=== PATIENT | male | born 1965 | race Caucasian/White ===

== ENCOUNTER 2023-02-06 08:02 | Emergency (ER) | payer OTHER ==
--- OUTSIDE RECORDS SUMMARY | 2023-02-06 08:05 | XMS REPORT | Continuity of Care Document ---
:[address] [facility] t Address [address] [place] [address] [place] [id number] Care Team Providers Name Role Phone GITA JEAN Primary Care Physician Unavailable Gita Jean Attending Clinician Unavailable RADIOLOGY Attending Clinician Unavailable Radiology Attending Clinician Unavailable Doctor Unassigned, [place] Attending Clinician Unavailable FRANCY STARK Admitting Clinician Unavailable GITA JEAN Admitting Clinician Unavailable Payers Payer Name Policy Type Policy Number Effective Date Expiration Date [facility] [id number] 2021 [facility] 00:00:00 Problems This patient has no known problems. Allergies, Adverse Reactions, Alerts Allergy Allergy Status Severity Reaction(s) Onset Inactive Treating Comm ents Source Name Type Date Date Clinician NO KNOWN Drug Active Univers ALLERGIE Class ity [facility] Medical [place] Social History Social Habit Start Date Stop Date Quantity Comments Source Exposure to 2022-07-07 2022-07-17 Not sure [facility] SARS-CoV-2 (event) 00:00:00 10:05:00 Medica l Branch Sex Assigned At [birth year] [facility] 00:00:00 00:00:00 Medical Branch Smoking Status Start Date Stop Date Source Tobacco smoking consumption Univ [facility] Medical unknown Branch Medications Ordered Filled Start Stop Current Ordering Indication Dosage Frequency Signature Comments Components Source Medication Medication Date Date Medication? Clinician (SIG) Name Name iopamidol 2022- No [id number] 100mL 100 mL, Univers (ISOVUE 3-30 03-30 Intravenou ity o f 370-500 mL) 18:00: 17:05 s, ONCE, 1 [place] injection 00 :00 dose, On Medica l 100 mL [place] [facility] 09/24/22 at 1300, Routine Procedures Procedure Date / Time Performing Clinician Source Performed CT ABDOMEN PELVIS W WO 2022-09-24 16:20:00 [facility], [facility] HB CREATININE SERUM/BLOOD 2022-09-24 16:15:00 [facility] ASSIGNMENT OF BENEFITS 2022-09-24 15:39:34 Doctor Unassigned, [facility] [place] [facility] US RETROPERITONEAL 2022-07-21 15:12:24 Requisition, Paper [facility] COMPLETE Medical Branch ASSIGNMENT OF BENEFITS 2022-07-21 13:59:09 Doctor Unassigned, [facility] [place] [facility] Encounters Start End Encounter Admission Attending Care Care Encounter Source Date/Time Date/Time Type Type Clinicians Facility Department ID 2022-09-17 Outpatient Gita Jean [facility] [id number] Common 10:45:03 [id number] [facility] 2022-09-24 2022-09-24 Outpatient R RADIOLOGY [facility] [id number] Univers 10:52:39 23:59:00 [facility] [facility] [place] 2022-09-24 2022-09-[address] [facility] [id number] Univers 10:50:00 23:59:00 Encounter [place] [id number] ity of [place] [id number] [facility] [id number] [facility] 801 Branch 2022-09-24 2022-09-24 Orders Doctor SHAYNA [id number] Univers 00:00:00 00:00:00 Only Unassigned, KATY [id number] ity of [place] [facility] [id number] Angel [id number] [facility] 009 Branch 2022-09-21 2022-09-21 Outpatient R RADIOLOGY [facility] [id number] Univers 00:00:00 00:00:00 ity of [facility] 2022-07-21 2022-07-21 Outpatient R RADIOLOGY [facility] [id number] Univers 08:00:51 23:59:00 ity of [facility] 2022-07-21 2022-07-[address] [facility] [id number] Univers 08:00:00 23:59:00 Encounter [place] [id number] ity of [place] [id number] [facility] [id number] [facility] 806 Branch 2022-07-21 2022-07-21 Orders Doctor SHAYNA [id number] Univers 00:00:00 00:00:00 Only Unassigned, KATY [id number] ity of [place] [facility] [id number] [facility] [id number] [facility] 009 Branch Results Test Description Test Time Test Comments Results Result Comments Source POCT CREATININE 2022-09-25 03:07:48 Test Item Value Reference Range Interpretation Comme nts POCT Creatinine (test code = [id number]) 1.1 mg/dL 0.6-1.3 Lab Interpretation (test code = 08418-7) Normal [facility]
[2023-02-06] MEDS ORDERED: dexAMETHasone 10 MG/ML VIAL ONE (08:38)
[2023-02-06] MEDS ORDERED: KETOROLAC 30 MG/ML INJ ONE (08:39)
[2023-02-06] MEDS ORDERED: HYDROCODONE/APAP 10/325 TAB ONE (08:39)
--- NOTE | 2023-02-06 09:28 | RAD REPORT ---
EXAM DESCRIPTION: RAD - Shoulder Left 2 View - 02/06/2023 8:40 am CLINICAL HISTORY: PAIN COMPARISON: No comparisons TECHNIQUE: Internal and external rotation views of the left shoulder were obtained. FINDINGS: There is no fracture or dislocation. AC joint is normal in appearance. No acute or suspici ous findings. IMPRESSION: Negative two-view left shoulder examination.
--- NOTE | 2023-02-06 09:42 | EDPHYS ---
Physician Documentation [facility] Name: Francis Montes Age: 57 yrs Sex: Male : 1965 Arrival Date: 02/06/2023 Time: 08:02 Bed 13 Private MD: ED Physician Arden Calhoun HPI: 02/06 08:27 This 57 yrs old Male presents to ER via Ambulatory with complaints of Shoulder Pain. kb 08:27 The patient or guardian complains of decreased range of motion, pain, tenderness. left kb shoulder. Context: The problem was sustained at home, resulted from lifting or carrying, The patient experiences decreased range of motion, The patient reports no obvious deformity. Onset: The symptoms/episode began/occurred 5 day(s) ago. Modifying factors: the symptoms are alleviated by nothing. The symptoms are aggravated by movement. Associated signs and symptoms: Pertinent positives: severe pain, Pertinent negatives: tingling. Severity of symptoms: At their worst the symptoms were moderate, in the emergency department the symptoms are unchanged. Treatment prior to arrival includes: no previous treatment. The patient has not experienced similar symptoms in the past. The patient has not recently seen a physician. Pt reports left shoulder pain that started Wednesday morning. 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 Denies injury or trauma. Pain has gotten worse since onset. Historical: - Allergies: 08:20 PENICILLINS; ss - Immunization history:: Adult Immunizations up to date. - Social history:: Smoking status: unknown. ROS: 08:26 Constitutional: Negative for fever, chills, and weight loss. kb 08:26 MS/extremity: Positive for decreased range of motion, pain, tenderness, of the anterior aspect of left shoulder. 08:26 All other systems are negative. Exam: 08:26 Constitutional: This is a well developed, well nourished patient who is awake, alert, kb and in no acute distress. Head/Face: Normocephalic, atraumatic. ENT: Moist Mucous membranes Cardiovascular: Regular rate and rhythm with a normal S1 and S2. No gallops, murmurs, or rubs. No pulse deficits. Respiratory: Respirations even and unlabored. No increased work of breathing. Talking in full sentences Skin: Warm, dry with normal turgor. Normal color. Neuro: Awake and alert, GCS 15, oriented to person, place, time, and situation. Moves all extremities. Normal gait. 08:26 Musculoskeletal/extremity: Extremities: grossly normal except: noted in the anterior aspect of left shoulder: decreased ROM, pain, tenderness, ROM: limited active range of motion due to pain, Circulation is intact in all extremities. Sensation intact. Vital Signs: 08:19 BP 114 / 78; Pulse 68; Resp 16; Temp 97.5(TE); Pulse Ox 100% on R/A; Weight 82.55 kg; ss Height 5 ft. 10 in. ; 08:21 Pain 10/10; ss 09:02 BP 99 / 68; Pulse 56; Resp 17; Pulse Ox 99% on R/A; me1 10:09 BP 92 / 63; Pulse 56; Resp 16; Pulse Ox 98% on R/A; Pain 2/10; me1 08:19 Body Mass Index 26.11 (82.55 kg, 177.8 cm) ss 08:21 Pain Scale: Adult ss 10:09 Pain Scale: Adult me1 MDM: 08:22 Patient medically screened. kb 08:26 Differential diagnosis: Anterior dislocation with fracture, Anterior dislocation kb without fracture, Posterior dislocation with fracture, Posterior dislocation without fracture, tendonitis. Data reviewed: vital signs, nurses notes. 09:32 Counseling: I had a detailed discussion with the patient and/or guardian regarding: the kb historical points, exam findings, and any diagnostic results supporting the discharge/admit diagnosis, radiology results, the need for outpatient follow up, a orthopedic surgeon, to return to the emergency department if symptoms worsen or persist or if there are any questions or concerns that arise at home. 02/06 08:23 Order name: Shoulder Left (2 View) XRAY; Complete Time: 09:29 kb 02/06 08:23 Order name: Sling; Complete Time: 09:30 kb Administered Medications: 08:33 Drug: [place] PO 10 mg-325 mg 1 tabs Route: PO; me1 08:34 Drug: Dexamethasone IM 10 mg Route: IM; Site: right deltoid; me1 08:34 Drug: Ketorolac IM 30 mg Route: IM; Site: right deltoid; me1 09:20 Not Given (Patient Refused): Ondansetron PO 4 mg PO once me1 Disposition: 16:48 Co-signature as Attending Physician, Arden Calhoun MD I agree with the assessment and kdr plan of care. Disposition Summary: 02/06/23 09:42 Discharge Ordered Location: Home kb Condition: Stable kb Diagnosis - Pain in left shoulder kb Followup: kb - With: Emergency Department - When: As needed - Reason: Worsening of condition Followup: kb - With: Private Physician - When: 2 - 3 days - Reason: Recheck today's complaints, Continuance of care, Re-evaluation by your physician Discharge Instructions: - Discharge Summary Sheet kb - Shoulder Pain, [id number] kb Forms: - Medication Reconciliation Form kb - Thank You Letter kb - Antibiotic Education kb - Prescription Opioid Use kb - Patient Portal Instructions kb - Leadership Thank You Letter kb Prescriptions: - Prednisone 20 mg Oral Tablet - take 1 tablet by ORAL route once daily for 5 days; 5 tablet; Refills: 0, Product Selection Permitted - Diclofenac Sodium 75 mg Oral tablet,delayed release (DR/EC) - take 1 tablet by ORAL route 2 times per day As needed; 30 tablet; Refills: 0, Product Selection Permitted - orphenadrine citrate 100 mg Oral Tablet Sustained Release - take 1 tablet by ORAL route 2 times per day As needed; 20 tablet; Refills: 0, Product Selection Permitted Signatures: Dispatcher [employer] EDMS Thalia Mckenzie, INTERNET [employer] SPECIALIST-C INTERNET [employer] SPECIALIST-Arden Cuenca MD MD [facility] Orly Rossi, RN RN Mari Moreno RN RN me1
--- NOTE | 2023-02-06 09:42 | ER ---
Nurse's Notes [facility] Name: Francis Montes Age: 57 yrs Sex: Male : 1965 Arrival Date: 02/06/2023 Time: 08:02 Bed 13 Private MD: Diagnosis: Pain in left shoulder Presentation: 02/06 08:19 Chief complaint: Patient states: L shoulder pain that has been ongoing since Wednesday. ss PT reports he has been doing a lot of work lifting heavy bags of cement, and the pain is only getting worse. Coronavirus screen: Client denies travel out of the [place] in the last 14 days. Ebola Screen: Patient denies exposure to infectious person. Patient denies travel to an Ebola-affected area in the 21 days before illness onset. Initial Sepsis Screen: Does the patient meet any 2 criteria? No. Patient's initial sepsis screen is negative. Does the patient have a suspected source of infection? No. Patient's initial sepsis screen is negative. Risk Assessment: Do you want to hurt yourself or someone else? Patient reports no desire to harm self or others. Onset of symptoms was March 05, 2023. 08:19 Method Of Arrival: Ambulatory ss 08:19 Acuity: NICKIE 4 ss Historical: - Allergies: 08:20 PENICILLINS; ss - Immunization history:: Adult Immunizations up to date. - Social history:: Smoking status: unknown. Screenin:41 [facility] ED Fall Risk Assessment (Adult) Score/Fall Risk Level 0 - 2 = Low Risk. Abuse me1 screen: Denies threats or abuse. Nutritional screening: No deficits noted. Tuberculosis screening: No symptoms or risk factors identified. Assessment: 08:41 General: Appears uncomfortable, well groomed, well developed, well nourished, Behavior me1 is calm, cooperative, appropriate for age. Pain: Complains of pain in left shoulder Pain radiates to left elbow down the posterior aspect of arm. Pain currently is 10 out of 10 on a pain scale. Quality of pain is described as sharp, Is continuous. Neuro: Level of Consciousness is awake, alert, obeys commands, Oriented to person, place, time, situation, Appropriate for age. Cardiovascular: Capillary refill < 3 seconds Patient's skin is warm and dry. Respiratory: Airway is patent Respiratory effort is even, unlabored, Respiratory pattern is regular, symmetrical. Musculoskeletal: Reports pain in left shoulder. 09:09 General: called to patient's room by stating patient isnt feeling well. Patient is me1 lying back on stretcher, pale, diaphoretic and c/o dizziness and nausea. Informed Nery Mckenzie NP and rec'd order for zofran. Put a cool rag on patient's head. Refused zofran stating that he doesn't need it as he is feeling better already. . Vital Signs: 08:19 BP 114 / 78; Pulse 68; Resp 16; Temp 97.5(TE); Pulse Ox 100% on R/A; Weight 82.55 kg; ss Height 5 ft. 10 in. ; 08:21 Pain 10/10; ss 09:02 BP 99 / 68; Pulse 56; Resp 17; Pulse Ox 99% on R/A; me1 10:09 BP 92 / 63; Pulse 56; Resp 16; Pulse Ox 98% on R/A; Pain 2/10; me1 08:19 Body Mass Index 26.11 (82.55 kg, 177.8 cm) ss 08:21 Pain Scale: Adult ss 10:09 Pain Scale: Adult me1 ED Course: 08:03 Patient arrived in ED. ts1 08:07 Arden Calhoun MD is Attending Physician. kdr 08:20 Triage completed. ss 08:20 Arm band placed on right wrist. ss 08:22 Thalia Mckenzie FNP-C [facility] kb 08:24 Mari Moreno, RN is Primary Nurse. me1 08:41 Shoulder Left (2 View) XRAY In Process Unspecified. EDMS 08:41 Patient has correct armband on for positive identification. Bed in low position. Call me1 light in reach. Side rails up X 1. Provided Education on: POC. Verbalized understanding. . 08:41 No provider procedures requiring assistance completed. Patient did not have IV access me1 during this emergency room visit. Administered Medications: 08:33 Drug: [place] PO 10 mg-325 mg 1 tabs Route: PO; me1 08:34 Drug: Dexamethasone IM 10 mg Route: IM; Site: right deltoid; me1 08:34 Drug: Ketorolac IM 30 mg Route: IM; Site: right deltoid; me1 09:20 Not Given (Patient Refused): Ondansetron PO 4 mg PO once me1 Medication: 08:41 VIS not applicable for this client. me1 Outcome: 09:42 Discharge ordered by . kb 10:09 Discharged to home ambulatory, with significant other. me1 10:09 Condition: stable 10:09 Discharge instructions given to patient, significant other, Instructed on discharge instructions, follow up and referral plans. medication usage, Demonstrated understanding of instructions, follow-up care, medications, Prescriptions given X 3. 10:10 Patient left the ED. me1 Signatures: Dispatcher [employer] EDMS Thalia Mcknezie, CORPORATE COORDINATOR-C CORPORATE COORDINATOR-Ckb Arden Calhoun MD MD [facility] Orly Rossi, ENYMAR RN ss Zohreh Winter, PAS PAS 1 Mari Moreno, RN RN me1
[2023-02-06 10:15] VITALS: TEMP 97.5
[2023-02-06 10:18] VITALS: BP 92/63; O2SAT 98
== END 2023-02-06 10:10 | disposition home or self-care (01) ==
LOC: ER 08:02
DX: M25.512 Pain in left shoulder (principal); Z88.0 Allergy status to penicillin
CPT/HCPCS: 73030; 96372; 99284; J1100

== ENCOUNTER 2024-04-04 08:01 | Day surgery (SDC) | payer OTHER ==
[2024-04-04] MEDS ORDERED: Gemcitabine 26.3 ML IS ONE (08:30)
[2024-04-04 08:31] LABS: Specific Gravity 1.019 (1.005-1.030); Urine Bilirubin NEGATIVE (Negative); Urine Blood Negative (Negative); Urine Clarity Clear (Clear); Urine Color Light-Yellow (Yellow); Urine Glucose 4+ (Over) (Negative); Urine Ketones NEGATIVE (Negative); Urine Microscopic Reflex YN NO UMIC; Urine Nitrite NEGATIVE (Negative); Urine Protein NEGATIVE (Negative); Urine Urobilinogen Normal (Normal)
[2024-04-04] MEDS: OXYBUTYNIN ER 5 MG TAB PO ONE (08:32)
[2024-04-04 08:37] VITALS: BP 123/61; TEMP 97.8; O2SAT 100; BMI 24.0
[2024-04-04] MEDS: DIAZEPAM 5 MG TABLET ONE (08:43)
[2024-04-04] MEDS ORDERED: LIDOCAINE JELLY 2% 5 ML SYRINGE TOP ONE (08:48)
--- NOTE | 2024-04-04 19:04 | P.PN ---
Date of Service: 04/04/24 Preprocedure diagnoses: Recurrent low-grade urothelial carcinoma the bladder Postprocedure diagnosis: Recurrent low-grade urothelial carcinoma the bladder Principal procedures: Insertion of urethral Reynolds catheter Instillation of intravesical gemcitabine 2 g and 50 cc normal saline, monthly maintenance since 04/04/24 Indication for procedure: Mr. Montes is a 58-year-old gentleman who underwent removal of a significantly sized bladder tumor found to be TA low-grade pathologically September 2022. He underwent an induction course of gemcitabine and then followed up with maintenance at which point a recurrence was noted December 2023. He was counseled on the potential benefit of not only a repeat induction course but continued maintenance therapy for a year to try to decrease his risk of future recurrences. Procedure note: The patient was consented before and his genitalia was prepped with Betadine and a lidocaine Uro-Jet was used to insert an 18 Vietnamese Reynolds catheter with ease. The bladder was decompressed of fluid and urine, and then his genitalia was toweled off and a fluid impermeable drape was placed covering his body from head to toe with the phallus brought through a hiatus in the drape to minimize the risk of contact exposure. He had been given 5 mg of Valium and 10 mg of oxybutynin XL prior to the subsequent retrograde instillation of 2 g of gemcitabine and 50 cc normal saline via the catheter into his bladder. He was then allowed to rotate by one quarter turn every 15 minutes, targeting a total of 90 minutes of instillation. The urine and chemotherapy was subsequently evacuated into the associated leg bag, and the urethral Reynolds catheter was removed. He was then allowed to sit, stand, and wash up and get dressed before being discharged from the day surgery procedure area in good condition. Complications: None Discharge disposition: Follow-up for outpatient/office cystoscopy around 04/26/2024. Continue intravesical gemcitabine 2 g monthly maintenance therapy once a month thereafter for 1 year, until 02/2025.
== END 2024-04-04 11:52 | disposition home or self-care (01) ==
LOC: DS 08:01
PROVIDERS: ATTEND Urology
PROC: 3E0K705 Introduction of Other Antineoplastic into Genitourinary Tract, Via Natural or Artificial Opening (ICD-10-PCS; principal; 2024-04-04)
DX: C67.9 Malignant neoplasm of bladder, unspecified (principal)
CPT/HCPCS: 81003; 51720 ×2; J9201

== ENCOUNTER 2024-05-09 08:07 | Day surgery (SDC) | payer OTHER ==
[~2024-05-09 08:07] MED LIST: Gemcitabine 52.6 ML IS ONE
[2024-05-09 08:32] LABS: Specific Gravity 1.025 (1.005-1.030); Sqamous Epithelial None Seen /HPF (None Seen); Urine Bacteria None Seen /HPF (<20); Urine Bilirubin NEGATIVE (Negative); Urine Blood Negative (Negative); Urine Clarity Clear (Clear); Urine Color Light-Yellow (Yellow); Urine Culture Reflex Order NOT NEEDED; Urine Glucose 4+ (Over) (Negative); Urine Ketones NEGATIVE (Negative); Urine Microscopic Reflex YN ORDER UMIC; Urine Nitrite NEGATIVE (Negative); Urine Protein NEGATIVE (Negative); Urine RBC <5 /HPF (None Seen); Urine Urobilinogen Normal (Normal); Urine WBC None Seen /HPF (<5); Urine pH 7.5 (5.0-7.0)
[2024-05-09] MEDS: OXYBUTYNIN ER 5 MG TAB PO ONE (08:33)
[2024-05-09 08:39] VITALS: BMI 25.1
[2024-05-09 08:41] VITALS: BP 115/64; TEMP 97.2; O2SAT 100
[2024-05-09] MEDS: DIAZEPAM 5 MG TABLET ONE (09:09)
[2024-05-09] MEDS ORDERED: LIDOCAINE JELLY 2% 5 ML SYRINGE TOP ONE ×2 (09:17→09:45)
--- NOTE | 2024-05-09 19:35 | P.PN ---
Date of Service: 05/09/24 Preprocedure diagnoses: Recurrent low-grade urothelial carcinoma the bladder Postprocedure diagnosis: Recurrent low-grade urothelial carcinoma the bladder Principal procedures: Insertion of urethral Reynolds catheter Instillation of intravesical gemcitabine 2 g and 50 cc normal saline, monthly maintenance since 04/04/24 Indication for procedure: Mr. Montes is a 58-year-old gentleman who underwent removal of a significantly sized bladder tumor found to be TA low-grade pathologically September 2022. He underwent an induction course of gemcitabine and then followed up with maintenance at which point a recurrence was noted December 2023. He was counseled on the potential benefit of not only a repeat induction course but continued maintenance therapy for a year to try to decrease his risk of future recurrences. Procedure note: The patient was consented before and his genitalia was prepped with Betadine and a lidocaine Uro-Jet was used to insert an 18 Malay Reynolds catheter with ease. The bladder was decompressed of fluid and urine, and then his genitalia was toweled off and a fluid impermeable drape was placed covering his body from head to toe with the phallus brought through a hiatus in the drape to minimize the risk of contact exposure. He had been given 5 mg of Valium and 10 mg of oxybutynin XL prior to the subsequent retrograde instillation of 2 g of gemcitabine and 50 cc normal saline via the catheter into his bladder. He was then allowed to rotate by one quarter turn every 15 minutes, targeting a total of 90 minutes of instillation. The urine and chemotherapy was subsequently evacuated into the associated leg bag, and the urethral Reynolds catheter was removed. He was then allowed to sit, stand, and wash up and get dressed before being discharged from the day surgery procedure area in good condition. Complications: None Discharge disposition: Follow-up for outpatient/office cystoscopy around 07/27/2023. Continue intravesical gemcitabine 2 g monthly maintenance therapy once a month thereafter for 1 year, until 02/2025.
== END 2024-05-09 11:46 | disposition home or self-care (01) ==
LOC: DS 08:07
PROVIDERS: ATTEND Urology
PROC: 3E0K705 Introduction of Other Antineoplastic into Genitourinary Tract, Via Natural or Artificial Opening (ICD-10-PCS; principal; 2024-05-09)
DX: C67.9 Malignant neoplasm of bladder, unspecified (principal)
CPT/HCPCS: 81001; 51720; J9201

== ENCOUNTER 2024-06-06 09:03 | Day surgery (SDC) | payer OTHER ==
[2024-06-06] MEDS: OXYBUTYNIN ER 5 MG TAB PO ONE (09:09)
[2024-06-06 09:27] LABS: Specific Gravity 1.024 (1.005-1.030); Urine Bilirubin NEGATIVE (Negative); Urine Blood Negative (Negative); Urine Clarity Clear (Clear); Urine Color Light-Yellow (Yellow); Urine Glucose 4+ (Over) (Negative); Urine Ketones NEGATIVE (Negative); Urine Microscopic Reflex YN NO UMIC; Urine Nitrite NEGATIVE (Negative); Urine Protein NEGATIVE (Negative); Urine Urobilinogen Normal (Normal); Urine pH 5.5 (5.0-7.0)
[2024-06-06] MEDS: DIAZEPAM 5 MG TABLET ONE (09:42)
[2024-06-06 09:53] VITALS: BP 107/60; TEMP 97.8; O2SAT 100; BMI 25.5
[2024-06-06] MEDS ORDERED: LIDOCAINE JELLY 2% 5 ML SYRINGE TOP ONE (09:53)
--- NOTE | 2024-06-06 16:57 | P.PN ---
Date of Service: 06/06/24 Preprocedure diagnoses: Recurrent low-grade urothelial carcinoma the bladder Postprocedure diagnosis: Recurrent low-grade urothelial carcinoma the bladder Principal procedures: Insertion of urethral Reynolds catheter Instillation of intravesical gemcitabine 2 g in 50 cc normal saline, monthly maintenance since 04/04/24 Indication for procedure: Mr. Montes is a 58-year-old gentleman who underwent removal of a significantly sized bladder tumor found to be TA low-grade pathologically September 2022. He underwent an induction course of gemcitabine and then followed up with maintenance at which point a recurrence was noted December 2023. He was counseled on the potential benefit of not only a repeat induction course but continued maintenance therapy for a year to try to decrease his risk of future recurrences. Procedure note: The patient was consented before and his genitalia was prepped with Betadine and a lidocaine Uro-Jet was used to insert an 18 Arabic Reynolds catheter with ease. The bladder was decompressed of fluid and urine, and then his genitalia was toweled off and a fluid impermeable drape was placed covering his body from head to toe with the phallus brought through a hiatus in the drape to minimize the risk of contact exposure. He had been given 5 mg of Valium and 10 mg of oxybutynin XL prior to the subsequent retrograde instillation of 2 g of gemcitabine and 50 cc normal saline via the catheter into his bladder. He was then allowed to rotate by one quarter turn every 15 minutes, targeting a total of 90 minutes of instillation. The urine and chemotherapy was subsequently evacuated into the associated leg bag, and the urethral Reynolds catheter was removed. He was then allowed to sit, stand, and wash up and get dressed before being discharged from the day surgery procedure area in good condition. Complications: None Discharge disposition: Follow-up for outpatient/office cystoscopy around 07/27/2023. Continue intravesical gemcitabine 2 g monthly maintenance therapy once a month thereafter for 1 year, until 02/2025.
== END 2024-06-06 11:49 | disposition home or self-care (01) ==
LOC: DS 09:03
PROVIDERS: ATTEND Urology
PROC: 3E0K705 Introduction of Other Antineoplastic into Genitourinary Tract, Via Natural or Artificial Opening (ICD-10-PCS; principal; 2024-06-06)
DX: C67.9 Malignant neoplasm of bladder, unspecified (principal)
CPT/HCPCS: 81003; 51720; J9201

== ENCOUNTER 2024-07-11 09:07 | Day surgery (SDC) | payer OTHER ==
[2024-07-11] MEDS: OXYBUTYNIN ER 5 MG TAB PO ONE (09:31)
[2024-07-11 09:33] LABS: Specific Gravity 1.026 (1.005-1.030); Urine Bilirubin NEGATIVE (Negative); Urine Blood Negative (Negative); Urine Clarity Clear (Clear); Urine Color Colorless (Yellow); Urine Glucose 4+ (Over) (Negative); Urine Ketones NEGATIVE (Negative); Urine Microscopic Reflex YN NO UMIC; Urine Nitrite NEGATIVE (Negative); Urine Protein NEGATIVE (Negative); Urine Urobilinogen Normal (Normal); Urine pH 5.5 (5.0-7.0)
[2024-07-11] MEDS: DIAZEPAM 5 MG TABLET ONE (09:44)
[2024-07-11] MEDS: LIDOCAINE JELLY 2% 5 ML SYRINGE TOP ONE (10:23)
[2024-07-11] MEDS ORDERED: Gemcitabine 52.6 ML IS ONE (10:30)
[2024-07-14 01:13] VITALS: BP 120/64; TEMP 98.4; O2SAT 100; BMI 25.8
--- NOTE | 2024-07-14 14:15 | P.PN ---
Date of Service: 07/11/24 Date of Service: 07/11/24 Preprocedure diagnoses: Recurrent low-grade urothelial carcinoma the bladder Postprocedure diagnosis: Recurrent low-grade urothelial carcinoma the bladder Principal procedures: Insertion of urethral Reynolds catheter Instillation of intravesical gemcitabine 2 g in 50 cc normal saline, monthly maintenance since 04/04/24 Indication for procedure: Mr. Montes is a 58-year-old gentleman who underwent removal of a significantly sized bladder tumor found to be TA low-grade pathologically September 2022. He underwent an induction course of gemcitabine and then followed up with maintenance at which point a recurrence was noted December 2023. He was counseled on the potential benefit of not only a repeat induction course but continued maintenance therapy for a year to try to decrease his risk of future recurrences. Procedure note: The patient was consented before and his genitalia was prepped with Betadine and a lidocaine Uro-Jet was used to insert an 18 Moroccan Reynolds catheter with ease. The bladder was decompressed of fluid and urine, and then his genitalia was toweled off and a fluid impermeable drape was placed covering his body from head to toe with the phallus brought through a hiatus in the drape to minimize the risk of contact exposure. He had been given 5 mg of Valium and 10 mg of oxybutynin XL prior to the subsequent retrograde instillation of 2 g of gemcitabine and 50 cc normal saline via the catheter into his bladder. He was then allowed to rotate by one quarter turn every 15 minutes, targeting a total of 90 minutes of instillation. The urine and chemotherapy was subsequently evacuated into the associated leg bag, and the urethral Reynolds catheter was removed. He was then allowed to sit, stand, and wash up and get dressed before being discharged from the day surgery procedure area in good condition. Complications: None Discharge disposition: Follow-up for outpatient/office cystoscopy around 07/27/2023. Continue intravesical gemcitabine 2 g monthly maintenance therapy once a month thereafter for 1 year, until 02/2025.
== END 2024-07-11 12:32 | disposition home or self-care (01) ==
LOC: DS 09:07
PROVIDERS: ATTEND Urology
PROC: 3E0K705 Introduction of Other Antineoplastic into Genitourinary Tract, Via Natural or Artificial Opening (ICD-10-PCS; principal; 2024-07-11)
DX: C67.9 Malignant neoplasm of bladder, unspecified (principal)
CPT/HCPCS: 81003; 51720; J9201

== ENCOUNTER 2024-08-08 07:59 | Day surgery (SDC) | payer OTHER ==
[2024-08-08] MEDS ORDERED: Gemcitabine 52.6 ML IS ONE (08:00)
[2024-08-08 08:38] LABS: Specific Gravity 1.026 (1.005-1.030); Urine Bilirubin NEGATIVE (Negative); Urine Blood Negative (Negative); Urine Clarity Clear (Clear); Urine Color Light-Yellow (Yellow); Urine Glucose 4+ (Over) (Negative); Urine Ketones NEGATIVE (Negative); Urine Microscopic Reflex YN NO UMIC; Urine Nitrite NEGATIVE (Negative); Urine Protein NEGATIVE (Negative); Urine Urobilinogen Normal (Normal)
[2024-08-08] MEDS: OXYBUTYNIN ER 5 MG TAB PO ONE (08:39)
[2024-08-08] MEDS: DIAZEPAM 5 MG TABLET ONE (08:49)
[2024-08-08] MEDS: LIDOCAINE JELLY 2% 5 ML SYRINGE TOP ONE (09:04)
[2024-08-08 09:18] VITALS: BP 112/63; TEMP 97.9; O2SAT 99; BMI 26.5
--- NOTE | 2024-08-08 18:12 | P.PN ---
Date of Service: 08/08/24 Preprocedure diagnoses: Recurrent low-grade urothelial carcinoma the bladder Postprocedure diagnosis: Recurrent low-grade urothelial carcinoma the bladder Principal procedures: Insertion of urethral Reynolds catheter Instillation of intravesical gemcitabine 2 g in 50 cc normal saline, monthly maintenance since 04/04/24 Indication for procedure: Mr. Montes is a 59-year-old gentleman who underwent removal of a significantly sized bladder tumor found to be TA low-grade pathologically September 2022. He underwent an induction course of gemcitabine and then followed up with maintenance at which point a recurrence was noted December 2023. He was counseled on the potential benefit of not only a repeat induction course but continued maintenance therapy for a year to try to decrease his risk of future recurrences. Procedure note: The patient was consented before and his genitalia was prepped with Betadine and a lidocaine Uro-Jet was used to insert an 18 Danish Reynolds catheter with ease. The bladder was decompressed of fluid and urine, and then his genitalia was toweled off and a fluid impermeable drape was placed covering his body from head to toe with the phallus brought through a hiatus in the drape to minimize the risk of contact exposure. He had been given 5 mg of Valium and 10 mg of oxybutynin XL prior to the subsequent retrograde instillation of 2 g of gemcitabine and 50 cc normal saline via the catheter into his bladder. He was then allowed to rotate by one quarter turn every 15 minutes, targeting a total of 90 minutes of instillation. The urine and chemotherapy was subsequently evacuated into the associated leg bag, and the urethral Reynolds catheter was removed. He was then allowed to sit, stand, and wash up and get dressed before being discharged from the day surgery procedure area in good condition. Complications: None Discharge disposition: Follow-up for outpatient/office cystoscopy in ~3 months, or as scheduled from his last outpatient cysto visit. Continue intravesical gemcitabine 2 g monthly maintenance therapy once a month thereafter for 1 year, until 02/2025.
== END 2024-08-08 11:38 | disposition home or self-care (01) ==
LOC: DS 07:59
PROVIDERS: ATTEND Urology
PROC: 3E0K705 Introduction of Other Antineoplastic into Genitourinary Tract, Via Natural or Artificial Opening (ICD-10-PCS; principal; 2024-08-08)
DX: C67.9 Malignant neoplasm of bladder, unspecified (principal)
CPT/HCPCS: 51720; 81003

== ENCOUNTER 2024-09-05 07:39 | Day surgery (SDC) | payer OTHER ==
[2024-09-04 11:50] LABS: Specific Gravity 1.027 (1.005-1.030); Sqamous Epithelial None Seen /HPF (None Seen); Urine Bacteria None Seen /HPF (<20); Urine Bilirubin NEGATIVE (Negative); Urine Blood Negative (Negative); Urine Clarity Clear (Clear); Urine Color Yellow (Yellow); Urine Culture Reflex Order NOT NEEDED; Urine Glucose 4+ (Negative); Urine Ketones NEGATIVE (Negative); Urine Microscopic Reflex YN ORDER UMIC; Urine Mucus 1+ /HPF (None Seen); Urine Nitrite NEGATIVE (Negative); Urine Protein TRACE (Negative); Urine RBC <5 /HPF (None Seen); Urine Urobilinogen Normal (Normal); Urine WBC <5 /HPF (<5)
[2024-09-05] MEDS ORDERED: Gemcitabine 52.6 ML IS ONE (08:00)
[2024-09-05] MEDS: DIAZEPAM 5 MG TABLET ONE (08:02)
[2024-09-05] MEDS: OXYBUTYNIN ER 5 MG TAB PO ONE (08:02)
[2024-09-05 08:09] VITALS: BP 121/71; TEMP 97.8; O2SAT 100; BMI 25.8
[2024-09-05] MEDS: LIDOCAINE JELLY 2% 5 ML SYRINGE TOP ONE (08:27)
--- NOTE | 2024-09-05 14:19 | P.PN ---
Date of Service: 09/05/24 Preprocedure diagnoses: Recurrent low-grade urothelial carcinoma the bladder Postprocedure diagnosis: Recurrent low-grade urothelial carcinoma the bladder Principal procedures: Insertion of urethral Reynolds catheter Instillation of intravesical gemcitabine 2 g in 50 cc normal saline, monthly maintenance since 04/04/24 Indication for procedure: Mr. Montes is a 59-year-old gentleman who underwent removal of a significantly sized bladder tumor found to be TA low-grade pathologically September 2022. He underwent an induction course of gemcitabine and then followed up with maintenance at which point a recurrence was noted December 2023. He was counseled on the potential benefit of not only a repeat induction course but continued maintenance therapy for a year to try to decrease his risk of future recurrences. Procedure note: The patient was consented before and his genitalia was prepped with Betadine and a lidocaine Uro-Jet was used to insert an 18 Italian Reynolds catheter with ease. The bladder was decompressed of fluid and urine, and then his genitalia was toweled off and a fluid impermeable drape was placed covering his body from head to toe with the phallus brought through a hiatus in the drape to minimize the risk of contact exposure. He had been given 5 mg of Valium and 10 mg of oxybutynin XL prior to the subsequent retrograde instillation of 2 g of gemcitabine and 50 cc normal saline via the catheter into his bladder. He was then allowed to rotate by one quarter turn every 15 minutes, targeting a total of 90 minutes of instillation. The urine and chemotherapy was subsequently evacuated into the associated leg bag, and the urethral Reynolds catheter was removed. He was then allowed to sit, stand, and wash up and get dressed before being discharged from the day surgery procedure area in good condition. Complications: None Discharge disposition: Follow-up for outpatient/office cystoscopy in ~3 months, or as scheduled from his last outpatient cysto visit. Continue intravesical gemcitabine 2 g monthly maintenance therapy once a month thereafter for 1 year, until 02/2025.
== END 2024-09-05 10:38 | disposition home or self-care (01) ==
LOC: DS 07:39
PROVIDERS: ATTEND Urology
PROC: 3E0K705 Introduction of Other Antineoplastic into Genitourinary Tract, Via Natural or Artificial Opening (ICD-10-PCS; principal; 2024-09-05)
DX: C67.9 Malignant neoplasm of bladder, unspecified (principal)
CPT/HCPCS: 51720; 81001

== ENCOUNTER 2024-10-06 16:21 | Emergency (ER) | payer OTHER ==
--- OUTSIDE RECORDS SUMMARY | 2024-10-06 16:25 | XMS REPORT | Continuity of Care Document ---
Author Name Unknown Address [address] [place] [address] [facility] Address [address] [place] [address] Care Team Providers Care Psychiatric Nursing Assistant Name Role Phone PCP, PATIENT DOES NOT HAVE A Primary Care Physic shabnam Unavailable Gita Jean Attending Clinician Unavailable RADIOLOGY Attending Clinician Unavailable Radiology Attending Clinician Unavailable SAMARA JOHN Attending Clinician Unavailab Samara Hernández NP Attending Clinician [phone] Radiology Attending Clinician Unavailable Doctor Unassigned, [place] Attending Clinician U ISAIAS Sanchez Admitting Clinician UnavailSAMARA Bravo Admitting Clinician Unavailab [facility] Admitting Clinician Unavailabl e FRANCY STARK Admitting Clinician Unavailable GITA JEAN Admitting Clinician Unavail able Payers Payer Name Policy Type Policy Number Effective Date Expirati on Date Source [facility] Shared Services 53 [id number] [facility] [id number] 2021 00:00:00 Problems Condition Name Condition Details Condition Category Status Onset Date Resolution Date Last Treatment Date Treating Clinician Comments Source Muscle spasms of neck Muscle spasms of neck Disease Active 2023-06 0-15 00:00: 00 [facility] Neck pain Neck pain Disease Active 2023-06 00:00: 00 [facility] Carcinoma of bladder Carcinoma of bladder Problem [facility] 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 Problem [facility] [id number] Bladder tumor Problem [facility] [id number] Gross hematuria Problem [facility] [id number] Benign prostatic hyperplasi a with lower urinary tract symptoms Problem [facility] Bladder cancer Bladder cancer Problem [facility] [id number] Urothelial carcinoma of bladder Problem [facility] Allergies, Adverse Reactions, Alerts Allergy Name Allergy Type Status Severity Reaction(s) Onset Date Inactive Date Treating Clinician Comments Source PENICILL IN DRUG INGREDI Active Unknown-Cmnt 2023-06 00:00: 00 [facility] Penicill in Propensi ty to adverse reaction s Active Unknown - See comments 2023-06 00:00: 00 [facility] NO KNOWN ALLERGIE S Drug Class Active [facility] [id number] Drug allergy Active Unknown [facility] Social History Social Habit Start Date Stop Date Quantity Comments Source History of Tobacco Use [facility] Sex Assigned At [facility] Sexual orientation U [facility] Exposure to SARS-CoV-2 (event) 2022-07-07 00:00:00 2022-07-17 10:05:00 Not sure [facility] Smoking Status Start Date Stop Date Source Tobacco smoking consumption unknown [facility] Former Smoker 2024-07-20 00:00:00 2024-07-20 00:00:00 [facility] Medications Ordered Medication Name Filled Medication Name Start Date Stop Date Current Medication? Ordering Clinician Indication Dosage Frequency Signature (SIG) Comments Components Source HYDROcodone -acetaminop hen (NORCO 5) tablet 1 tablet 2023-06 23:45: 00 04-12 00:38 :00 No 1{tbl} 1 tablet, Oral, ONCE, 1 dose, On Wed04/11/24 at 1845, ERIC [facility] methocarbam oL 750 mg tablet 2023-06 015 00:00: 00 Yes [id number] 4 750mg Take 1 tablet by mouth every 6 (six) hours as needed for Pain (scale 7-10) or Other (Muscle spasm). [facility] Flomax 0.4 MG Flomax 0.4 MG 1-04 00:00: 00 No 1{capsu le_at_b edtime} QD Flomax 0.4 MG iopamidol (ISOVUE 370-500 mL) injection 100 mL 09-24 18:00: 00 09-24 17:05 :00 No [id number] 100mL 100 mL, Intravenou s, ONCE, 1 dose, On Wed09/24/22 at 1300, Routine [facility] Mounjaro 2.5 MG/0.5ML Mounjaro 2.5 MG/0.5ML No Mounjaro 2.5 MG/0.5ML metFORMIN HCl 1000 MG metFORMIN HCl 1000 MG No 1{table t_with_ a_meal} BID metFORMIN HCl 1000 MG Jardiance 25 MG Jardiance 25 MG No 1{table t} QD Jardiance 25 MG Vital Signs Vital Name Observation Time Observation Value Comments S ource height 2024-07-20 14:15:00 70 [in_i] Commo n [facility] weight 2024-07-20 14:15:00 185.0 [lb_av] Co mmon [facility] temperature 2024-07-20 14:15:00 97.9 [degF] Com mon [facility] bmi 2024-07-20 14:15:00 26.54 kg/m2 Comm on [facility] oximetry 2024-07-20 14:15:00 98 % Commo n [facility] respiratory rate 2024-07-20 14:15:00 17 /min Common [facility] blood pressure systolic 2024-07-20 14:15:00 129 mm[Hg] [facility] blood pressure diastolic 2024-07-20 14:15:00 69 mm[Hg] Common [facility] height 2024-04-24 16:15:00 70 [in_i] Commo n [facility] weight 2024-04-24 16:15:00 178.6 [lb_av] Co mmon [facility] temperature 2024-04-24 16:15:00 98.3 [degF] Com mon [facility] bmi 2024-04-24 16:15:00 25.62 kg/m2 Comm on [facility] oximetry 2024-04-24 16:15:00 99 % Commo n [facility] respiratory rate 2024-04-24 16:15:00 18 /min [facility] blood pressure systolic 2024-04-24 16:15:00 137 mm[Hg] [facility] blood pressure diastolic 2024-04-24 16:15:00 71 mm[Hg] [facility] Systolic blood pressure 2024-04-12 01:58:37 111 mm[Hg] [facility] Diastolic blood pressure 2024-04-12 01:58:37 65 mm[Hg] [facility] Heart rate 2024-04-12 01:58:37 77 /min [facility] Body temperature 2024-04-12 01:58:37 37.11 Oumou [facility] Respiratory rate 2024-04-12 01:58:37 16 /min [facility] Oxygen saturation in Arterial blood by Pulse oximetry 2024-04-12 01:58:37 97 /min [facility] Body height 2024-04-11 23:35:00 177.8 cm [facility] Body weight 2024-04-11 23:35:00 76.204 kg [facility] BMI 2024-04-11 23:35:00 24.11 kg/m2 [facility] temperature 2024-01-05 09:00:00 98.0 [degF] Com mon [facility] bmi 2024-01-05 09:00:00 25.14 kg/m2 Comm on [facility] oximetry 2024-01-05 09:00:00 99 % Commo n [facility] respiratory rate 2024-01-05 09:00:00 18 /min [facility] blood pressure systolic 2024-01-05 09:00:00 123 mm[Hg] [facility] blood pressure diastolic 2024-01-05 09:00:00 61 mm[Hg] [facility] height 2024-01-05 09:00:00 70 [in_i] Commo n [facility] weight 2024-01-05 09:00:00 175.2 [lb_av] Co [facility] height 2023-07-01 09:15:00 70 [in_i] Commo n [facility] weight 2023-07-01 09:15:00 176.8 [lb_av] Co [facility] temperature 2023-07-01 09:15:00 97.5 [degF] Com mon [facility] bmi 2023-07-01 09:15:00 25.37 kg/m2 Comm on [facility] oximetry 2023-07-01 09:15:00 97 % Commo n [facility] respiratory rate 2023-07-01 09:15:00 18 /min [facility] blood pressure systolic 2023-07-01 09:15:00 140 mm[Hg] [facility] blood pressure diastolic 2023-07-01 09:15:00 68 mm[Hg] [facility] height 2022-12-31 09:30:00 70 [in_i] Commo n [facility] weight 2022-12-31 09:30:00 174.8 [lb_av] Co [facility] temperature 2022-12-31 09:30:00 97.8 [degF] Com mon [facility] bmi 2022-12-31 09:30:00 25.08 kg/m2 Comm on [facility] oximetry 2022-12-31 09:30:00 99 % Commo n [facility] respiratory rate 2022-12-31 09:30:00 18 /min Common [facility] blood pressure systolic 2022-12-31 09:30:00 115 mm[Hg] [facility] blood pressure diastolic 2022-12-31 09:30:00 63 mm[Hg] Common [facility] weight 2022-10-08 08:45:00 171.4 [lb_av] Co mmon [facility] temperature 2022-10-08 08:45:00 97.3 [degF] Com [facility] bmi 2022-10-08 08:45:00 24.59 kg/m2 Comm on [facility] oximetry 2022-10-08 08:45:00 99 % Commo n [facility] respiratory rate 2022-10-08 08:45:00 18 /min Common [facility] blood pressure systolic 2022-10-08 08:45:00 132 mm[Hg] Common [facility] blood pressure diastolic 2022-10-08 08:45:00 68 mm[Hg] Common [facility] height 2022-10-08 08:45:00 70 [in_i] Commo n [facility] height 2022-09-24 14:00:00 70 [in_i] Commo n [facility] weight 2022-09-24 14:00:00 174 [lb_av] Comm on [facility] temperature 2022-09-24 14:00:00 98.6 [degF] Com [facility] bmi 2022-09-24 14:00:00 24.96 kg/m2 Comm on [facility] oximetry 2022-09-24 14:00:00 99 % Commo n [facility] respiratory rate 2022-09-24 14:00:00 18 /min [facility] blood pressure systolic 2022-09-24 14:00:00 151 mm[Hg] [facility] blood pressure diastolic 2022-09-24 14:00:00 76 mm[Hg] [facility] height 2022-09-17 11:15:00 70 [in_i] Commo n [facility] weight 2022-09-17 11:15:00 176.2 [lb_av] Co mmon [facility] temperature 2022-09-17 11:15:00 97.4 [degF] Com mon [facility] bmi 2022-09-17 11:15:00 25.28 kg/m2 Comm on [facility] oximetry 2022-09-17 11:15:00 99 % Commo n [facility] respiratory rate 2022-09-17 11:15:00 18 /min [facility] blood pressure systolic 2022-09-17 11:15:00 133 mm[Hg] [facility] blood pressure diastolic 2022-09-17 11:15:00 69 mm[Hg] [facility] Procedures Procedure Date / Time Performed Performing Clinician Source CT HEAD WO CONTRAST 2024-04-14 21:51:02 Requisition, P aper [facility] CT CERVICAL SPINE WO CONTRAST 2024-04-12 00:48:20 Samara John [facility] LIVER 2024-01-10 13:42:14 [facility]EL[facility] W WO CONTRAST 2022-09-24 16:20:00 Requisition, Paper [facility] HB CREATININE SERUM/BLOOD FOR IMAGING 2022-09-24 16:15:00 Radiology [facility] ASSIGNMENT OF BENEFITS 2022-09-24 15:39:34 Docto r Unassigned, [place] [facility] RETROPERITONEAL COMPLETE 2022-07-21 15:12:24 Requisition, Paper [facility] ASSIGNMENT OF BENEFITS 2022-07-21 13:59:09 Docto r Unassigned, [place] [facility] Encounters Start Date/Time End Date/Time Encounter Type Admission Type Attending [facility] Facility Care Department Encounter ID Source 2024-07-24 15:50:00 Outpatient Gita Jean [facility] [id number] [facility] 2024-06-19 11:19:00 Outpatient Gita Jean [facility] [id number] [facility] 2023-09-23 08:31:01 Outpatient Gita Jean [facility] [id number] [facility] 2022-09-17 10:45:03 Outpatient Gita Jean [facility] [id number] [facility] 2024-07-20 00:00:00 2024-07-20 00:00:00 OFFICE VISIT ESTAB PT LEVEL 4 STLMLC STLMLC [id number] [facility] 2024-04-24 00:00:00 2024-04-24 00:00:00 OFFICE VISIT ESTAB PT LEVEL 3 STLMLC STLMLC [id number] [facility] 2024-04-14 16:08:23 2024-04-14 23:59:00 Outpatient R RADIOLOGY [facility] [id number] [facility] 2024-04-14 16:08:23 2024-04-14 23:59:00 Hospital Encounter Radiology Radiology [facility] [id number] 350.1.13.10 [id number] [id number] [facility] 2024-04-14 00:00:00 2024-04-14 00:00:00 Outpatient R RADIOLOGY [facility] [id number] [facility] 2024-04-11 18:38:00 2024-04-11 21:04:00 Emergency X SAMARA JOHN [facility] ERT [id number] [facility] 2024-04-11 18:38:00 2024-04-11 21:04:00 Emergency Samara Jhon [facility] [id number] 350.1.13.10 [id number] [id number] [facility] 2024-01-26 00:00:00 2024-01-26 00:00:00 (TEL) STLMLC STLMLC [id number] [facility] 2024-01-10 07:54:03 2024-01-10 23:59:00 Hospital Encounter Radiology [facility] [id number] 350.1.13.10 [id number] [id number] [facility] 2024-01-10 07:54:03 2024-01-10 23:59:00 Outpatient R RADIOLOGY [facility] [id number] [facility] 2024-01-05 00:00:00 2024-01-05 00:00:00 OFFICE VISIT ESTAB PT LEVEL 3 STLMLC STLMLC [id number] [facility] 2023-07-01 00:00:00 2023-07-01 00:00:00 OFFICE VISIT ESTAB PT LEVEL 3 STLMLC STLMLC [id number] [facility] 2022-12-31 00:00:00 2022-12-31 00:00:00 (PROC) Procedure STLMLC STLMLC [id number] [facility] 2022-10-14 00:00:00 2022-10-14 00:00:00 (TEL) STLMLC STLMLC [id number] [facility] 2022-10-08 00:00:00 2022-10-08 00:00:00 OFFICE VISIT ESTAB PT LEVEL 3 STLMLC STLMLC [id number] [facility] 2022-09-24 10:52:39 2022-09-24 23:59:00 Outpatient R RADIOLOGY [facility] [id number] [facility] 2022-09-24 10:50:00 2022-09-24 23:59:00 Hospital Encounter Radiology [facility] [id number] 350.1.13.10 [id number] [id number] [facility] 2022-09-24 00:00:00 2022-09-24 00:00:00 Orders Only Doctor Unassigned, [place] [facility] [id number] [id number] [id number] [id number] [facility] 2022-09-24 00:00:00 2022-09-24 00:00:00 OFFICE VISIT ESTAB PT LEVEL 4 STLMLC STLMLC [id number] [facility] 2022-09-21 00:00:00 2022-09-21 00:00:00 Outpatient R RADIOLOGY [facility] [id number] [facility] 2022-09-17 00:00:00 2022-09-17 00:00:00 OFFICE VISIT NEW PT LEVEL 3 STLMLC STLMLC [id number] [facility] 2022-07-21 08:00:51 2022-07-21 23:59:00 Outpatient R RADIOLOGY [facility] [id number] [facility] 2022-07-21 08:00:00 2022-07-21 23:59:00 Hospital Encounter Radiology [facility] [id number] 350.1.13.10 [id number] [id number] [facility] 2022-07-21 00:00:00 2022-07-21 00:00:00 Orders Only Doctor Unassigned, [place] [facility] [id number] 350.1.13.10 [id number] [id number] [facility] Results Test Description Test Time Test Comments Results Result Comments Source CT HEAD WO CONTRAST 23:01:16 EXAM: CT HEAD WO CONTRAST HISTORY: ?Dizziness TECHNIQUE: Axial CT of the head was performed and reconstructed at 5 mmintervals. Coronal and sagittal reformatted images were generated. COMPARISON: None FINDINGS: The ventricles and cerebral sulci are normal in caliber and configuration.No midline shift or pathological extra-axial fluid collection is present.The basal cisterns are unremarkable. No acute intracranial hemorrhage or significant mass effect is visualized.No parenchymal attenuation abnormality is seen. The saavedra-white matterdifferentiation is preserved. The mastoid air cells and paranasal air sinuses are clear. The calvariumand central skull base are unremarkable. [facility] CT CERVICAL SPINE WO CONTRAST 00:58:24 EXAM: CT CERVICAL SPINE WO CONTRAST HISTORY: 58 years-old Male; Provided indication: nack pain. TECHNIQUE: Routine unenhanced CT of the cervical spine was performed.Coronal and sagittal reformats were obtained. COMPARISON: None available. FINDINGS: Normal cervical lordosis is noted. The vertebral bodies are normal inheight and alignment. No acute fracture or dislocation is present. Normal alignment of the craniocervical junction and atlantoaxial joint. Disc spaces are preserved. Schmorl's nodes noted at C3-C4. The prevertebral soft tissues are unremarkable. Mild paraseptalemphysematous changes are noted at the lung apices. [facility] US LIVER 19:59:00 EXAM: US LIVER HISTORY: 58 years-old Male; Elevated transaminase level TECHNIQUE: Limited abdominal ultrasound focused on the liver was performed.The main portal vein was evaluated with color Doppler imaging.[employer] images were obtained for the record. COMPARISON: CT abdomen and pelvis with and without contrast on 09/24/2022. FINDINGS: PANCREAS:The visualized portions display normal echogenicity. AORTA:The proximal abdominal aorta is normal in caliber where visualized andmeasures approximately 1.96 cm in diameter. IVC:The visualized portion of the IVC is normal in caliber. LIVER:Length: The liver is normal in size and measures 16.2 cm.Parenchyma: The liver parenchyma exhibits normal hepatic echogenicity andechotexture. No focal lesion is detected.Portal vein: Hepatopetal flow is present in the main portal vein.MPV diameter: The main portal vein measures 1.35 cm.MPV velocity: The main portal vein velocity is approximately 28.0 cm/s. BILE DUCTS:No intra- or extrahepatic biliary dilatation is visualized.The common duct diameter is normal and measures 0.5 cm. GALLBLADDER:The gallbladder wall thickness is normal and measures 0.15 cm. Howe's sign was not demonstrated. SPLEEN:The spleen is normal in size and measures 11.4 cm. OTHER: None. [facility] Notes Date/Time Note Provider Source 2024-04-11 21:03:55 Pt given printed and verbal discharge instructions regarding muscle spasm, Prescriptions provided Pt verbalized understanding of instructions, pt awake alert oriented, resp reg unlabored, skin w/d, color appropriate for race, moves all ext well,pt encouraged to follow up with pcp Advised to seek medical attention for new/prolonged/worsening of symptoms, No adverse reaction to meds given in ER noted upon discharge Awake, alert oriented, resp reg unlabored, skin w/d, pt leaving amb with steady gait, in no apparent distress, Shaquille Alcantara RN [facility] [employer] 2024-04-11 18:33:19 Pt presents to ED ambulatory with c/o pain between his shoulder and neck that started "a couple weeks ago" with difficulty swallowing. Is supposed to go get a scan recommended by his doctor but has not done it. Pt states when he is working and bends over sometimes he gets dizzy. Pt is currently taking cyclobenzaprine and took one 30 minutes ago. T [facility] [employer]
--- NOTE | 2024-10-06 17:14 | RAD REPORT ---
EXAMINATION: TWO VIEW CHEST XR CLINICAL INDICATION: PAIN TECHNIQUE: 2 views of the chest was performed. COMPARISON: No prior exam. FINDINGS: The lungs are well inflated and clear. The heart is normal in size. No displaced fractures evident. IMPRESSION: No acute or significant abnormalities.
--- NOTE | 2024-10-06 17:14 | RAD REPORT ---
EXAMINATION: XR RIGHT SHOUDLER CLINICAL INDICATION: Male, 59 years old. PAIN RIGHT TECHNIQUE: Multiple views of the right shoulder were obtained. COMPARISON: No prior exam. FINDINGS: Mild AC joint degenerative changes. No fracture, dislocation or aggressive bone lesion.
[2024-10-06] MEDS ORDERED: ONDANSETRON 4 MG/2 ML VIAL ONE (19:20)
[2024-10-06] MEDS ORDERED: MORPHINE 4 MG/ML SYR ONE (19:20)
[2024-10-06] MEDS ORDERED: dexAMETHasone 10 MG/ML VIAL ONE (19:20)
[2024-10-06] MEDS ORDERED: KETOROLAC 30 MG/ML INJ ONE (19:49)
[2024-10-06 19:54] LABS: Absolute Basophils 0.1 K/uL (0-0.5); Absolute Eosinophils 0.1 K/uL (0-0.5); Absolute Lymphocytes (CBC) 2.1 K/uL (0.7-4.9); Absolute Monocytes 0.7 K/uL (0.1-1.3); Absolute Neutrophil 7.5 K/uL (1.8-8.0); Basophils % 1.1 % (0-1.3); Eosinophils % 1.2 % (0-4.4); Hematocrit 40.9 % (39.6-49.0); Hemoglobin 14.1 g/dL (13.6-17.9); Lymphocytes % 19.9 % (15.3-44.8); MCH 28.3 pg (27.0-35.0); MCHC 34.4 g/dL (32.0-36.0); MCV 82.2 fL (80-100); MPV 7.4 fL (7.6-11.3); Monocytes % 6.4 % (3.3-12.3); Neutrophils % 71.4 % (41.7-73.7); Nucleated Red Blood Cells % 0.1 % (0-0); Platelets 309 thou/uL (152-406); RBC Red Blood Cell Count 4.97 M/uL (4.33-5.43); Red Cell Distribution Width 13.3 % (12.1-15.2)
[2024-10-06 20:06] LABS: Anion Gap 9.8 mEq/L (5.0-15.0); BUN Blood Urea Nitrogen 27 mg/dL (7-18); Bicarbonate 29 mEq/L (21-32); Glomerular Filtration Rate 78 ml/min (=/>90); Glucose Level 123 mg/dL (74-106); Potassium 3.8 mEq/L (3.5-5.1); Sodium Level 133 mEq/L (136-145)
[2024-10-06 20:07] LABS: Troponin High Sensitivity < 3.0 pg/mL (<58.9)
--- NOTE | 2024-10-06 22:28 | EDPHYS ---
Physician Documentation [facility] Name: Francis Montes Age: 59 yrs Sex: Male : 1965 Arrival Date: 10/06/2024 Time: 16:21 Bed 9 Private MD: Shorty Lehman HPI: 10/06 18:19 This 59 yrs old Male presents to ER via Ambulatory with complaints of Arm dr5 Pain, Hand Pain. 18:19 The complaints affect the right wrist and right hand. Onset: The symptoms/episode dr5 began/occurred 3 week(s) ago. Patient is a 59-year-old male with history of bladder cancer currently on chemotherapy once a month and history of diabetes coming in with right shoulder, right wrist, right hand pain has been going on for the past couple weeks. Patient reports he went to chiropractor yesterday for adjustment and felt much better yesterday. Patient then woke up this morning with pain to his wrist and hand as well as shoulder. Patient denies any trauma or injury. 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 Historical: - Allergies: 16:54 PENICILLINS; hb - PMHx: 16:54 DM2; hb 16:57 Bladder CA; hb - Immunization history:: Adult Immunizations up to date. - Infectious Disease History:: Denies. - Social history:: Smoking status: Patient denies any tobacco usage or history of. ROS: 19:59 Constitutional: as per hpi dr5 Exam: 19:59 Constitutional: This is a well developed, well nourished patient who is awake, alert, dr5 and in no acute distress. Head/Face: Normocephalic, atraumatic. ENT: Nares patent. No nasal discharge, no septal abnormalities noted. Tympanic membranes are normal and external auditory canals are clear. Oropharynx with no redness, swelling, or masses, exudates, or evidence of obstruction, uvula midline. Mucous membranes moist. Neck: Trachea midline, no thyromegaly or masses palpated, and no cervical lymphadenopathy. Supple, full range of motion without nuchal rigidity, or vertebral point tenderness. No Meningismus. Chest/axilla: Normal chest wall appearance and motion. Nontender with no deformity. No lesions are appreciated. Cardiovascular: Regular rate and rhythm with a normal S1 and S2. Normal PMI, no JVD. No pulse deficits. Respiratory: Lungs have equal breath sounds bilaterally, clear to auscultation. No rales, rhonchi or wheezes noted. No increased work of breathing, no retractions or nasal flaring. Skin: Warm, dry with normal turgor. Normal color with no rashes, no lesions, and no evidence of cellulitis. Patient has small red streak in the anterior midline of right forearm that is not painful to palpation. MS/ Extremity: Pulses equal, no cyanosis. Neurovascular intact. Full, normal range of motion. Neuro: Awake and alert, GCS 15, oriented to person, place, time, and situation. Cranial nerves II-XII grossly intact. Motor strength 5/5 in all extremities. Sensory grossly intact. Cerebellar exam normal. Normal gait. Vital Signs: 16:52 BP 133 / 87; Pulse 68; Resp 16; Temp 99.3; Pulse Ox 99% on R/A; Weight 83.91 kg; Height hb 5 ft. 10 in. ; Pain 8/10; 19:47 BP 126 / 63; Pulse 71; Resp 18; Temp 96.7; Pulse Ox 99% ; hw 20:46 BP 124 / 63; Pulse 70; Resp 18; Pulse Ox 100% on R/A; kj2 22:47 BP 122 / 68; Pulse 72; Resp 20; Temp 98; Pulse Ox 100% on R/A; kj2 16:52 Body Mass Index 26.54 (83.91 kg, 177.8 cm) hb 16:52 Pain Scale: Adult hb Procedures: 10/07 00:58 Splinting: Splint applied to right arm and right wrist using wrist splint, applied by dr5 myself. Examined by me, post splint application: neurovascular intact, 2+ distal pulses palpable, brisk capillary refill noted, Patient tolerated well. MDM: 10/06 16:35 Medical Screening Exam initiated dr5 10/07 00:56 Differential diagnosis: dislocation, contusion, abrasion, Cellulitis, Abscess. Data dr5 reviewed: vital signs, nurses notes. I considered the following discharge prescriptions or medication management in the emergency department Medications were administered in the Emergency Department. See MAR. Care significantly affected by the following Social Determinants of Health: Poor access to healthcare and/or lack of insurance, Poor access to transportation, Problems related to employment. Counseling: I had a detailed discussion with the patient and/or guardian regarding the historical points, exam findings, and any diagnostic results supporting the discharge/admit diagnosis, the presence of at least one elevated blood pressure reading (>120/80) during this emergency department visit, lab results. 00:58 Medication response: Response to treatment: the patient's symptoms have markedly dr5 improved after treatment. ED course: Patient's range of motion of fingers increased and patient is feeling much better. Will place patient in wrist splint and recommended RICE. Alternate Tylenol Motrin as needed. Will have patient follow with primary care doctor this week. All results were printed and given to patient during discharge.. 10/06 16:57 Order name: Basic Metabolic Panel hb 10/06 16:57 Order name: CBC with Diff hb 10/06 16:57 Order name: Troponin HS hb 10/06 16:57 Order name: Chest Pa And Lat (2 Views) XRAY; Complete Time: 17:15 hb 10/06 16:57 Order name: Shoulder Right (2 View) XRAY; Complete Time: 17:15 hb 10/06 16:57 Order name: EKG; Complete Time: 16:57 hb 10/06 16:57 Order name: Cardiac monitoring; Complete Time: 20:47 hb 10/06 16:57 Order name: EKG - Nurse/Tech; Complete Time: 19:48 hb 10/06 16:57 Order name: IV Saline Lock; Complete Time: 19:48 hb 10/06 16:57 Order name: Labs collected and sent; Complete Time: 19:48 hb 10/06 16:57 Order name: O2 Per Protocol; Complete Time: 20:47 hb 10/06 16:57 Order name: O2 Sat Monitoring; Complete Time: 20:47 hb 10/06 22:27 Order name: Wrist Splint; Complete Time: 22:50 dr5 EC/11 19:29 Rate is 79 beats/min. Rhythm is regular. QRS [place] is Normal. UT interval is normal at dr5 164 msec. QRS interval is normal at 100 msec. QT interval is normal at 370 msec. Administered Medications: 20:03 Drug: Ondansetron IVP 4 mg IVP once; over 2 minutes Route: IVP; Site: left antecubital; lg3 22:50 Follow up: Response: No adverse reaction kj2 20:03 Drug: Ketorolac IVP 15 mg IVP once Route: IVP; Site: left antecubital; lg3 22:50 Follow up: Response: No adverse reaction kj2 20:04 Drug: Dexamethasone IVP 10 mg IVP once; (not to exceed 40 mg) Route: IVP; Site: left lg3 antecubital; 22:50 Follow up: Response: No adverse reaction kj2 20:04 Drug: morphine IVP or IV 4 mg IVP once over 4 mins Route: IVP; Infused Over: 4 mins; lg3 Site: left antecubital; 22:50 Follow up: Response: No adverse reaction kj2 Disposition Summary: 10/06/24 22:28 Discharge Ordered Notes: Location: Home dr5 Condition: Stable dr5 Diagnosis - Strain of other muscles, fascia and tendons at shoulder and upper arm level, right dr5 arm Followup: dr5 - With: Emergency Department - When: As needed - Reason: Worsening of condition Followup: dr5 - With: Private Physician - When: 1 - 2 days - Reason: Recheck today's complaints, Continuance of care, Re-evaluation by your physician Discharge Instructions: - Discharge Summary Sheet dr5 - Tendinitis dr5 Forms: - Medication Reconciliation Form dr5 - Patient Portal Instructions dr5 - Leadership Thank You Letter dr5 Prescriptions: - Ibuprofen 800 mg Oral Tablet - take 1 tablet ORAL route every 12 hours As needed take with food; 20 tablet; dr5 Refills: 0, Product Selection Permitted - Tramadol 50 mg Oral Tablet - take 1 tablet ORAL route every 8 hours as needed; 12 tablet; Refills: 0, dr5 Product Selection Permitted - Medrol (Thad) 4 mg Oral Tablets, Dose Pack - take 1 tablet ORAL route as directed - follow package instructions; 1 packet; dr5 Refills: 0, Product Selection Permitted Signatures: Dispatcher [employer] Candy Carvalho RN Codi Driver RN RN lg3 Kentrell Harden, LEONOR-C [employer]CR[employer]E [employer]WORKER-5 Lashonda Yu RN kj2
--- NOTE | 2024-10-06 22:28 | ER ---
Nurse's Notes [facility] Name: Francis Montes Age: 59 yrs Sex: Male : 1965 Arrival Date: 10/06/2024 Time: 16:21 Bed 9 Private MD: Diagnosis: Strain of other muscles, fascia and tendons at shoulder and upper arm level, right arm Presentation: 10/06 16:52 Chief complaint: Right hand and wrist pain upon waking today. Has been seeing chiropractor for neck pain, last visit was yesterday. Coronavirus screen: At this time, the client does not indicate any symptoms associated with coronavirus-19. Ebola Screen: No symptoms or risks identified at this time. Initial Sepsis Screen: Does the patient meet any 2 criteria? No. Patient's initial sepsis screen is negative. Does the patient have a suspected source of infection? No. Patient's initial sepsis screen is negative. Risk Assessment: Do you want to hurt yourself or someone else? Patient reports no desire to harm self or others. Onset of symptoms was October 06, 2024. 16:52 Method Of Arrival: Ambulatory 16:52 Acuity: NICKIE 3 hb Historical: - Allergies: 16:54 PENICILLINS; hb - PMHx: 16:54 DM2; hb 16:57 Bladder CA; hb - Immunization history:: Adult Immunizations up to date. - Infectious Disease History:: Denies. - Social history:: Smoking status: Patient denies any tobacco usage or history of. Screenin:46 [facility] ED Fall Risk Assessment (Adult) History of falling in the last 3 months, kj2 including since admission No falls in past 3 months (0 pts) Confusion or Disorientation No (0 pts) Intoxicated or Sedated No (0 pts) Impaired Gait No (0 pts) Mobility Assist Device Used No (0 pt) Altered Elimination No (0 pt) Score/Fall Risk Level 0 - 2 = Low Risk Maintained a safe environment, Hourly rounding (assess needs \T\ fall precautionary measures) done. Abuse screen: Denies threats or abuse. Denies injuries from another. Nutritional screening: No deficits noted. Tuberculosis screening: No symptoms or risk factors identified. Assessment: 20:45 General: Appears in no apparent distress. Behavior is cooperative. Pain: Complains of kj2 pain in right hand and right wrist Pain currently is 6 out of 10 on a pain scale. Neuro: Level of Consciousness is awake, alert, Oriented to person, place, time, situation. Cardiovascular: Patient's skin is warm and dry. Respiratory: Airway is patent Respiratory effort is unlabored. GI: No signs and/or symptoms were reported involving the gastrointestinal system. : No signs and/or symptoms were reported regarding the genitourinary system. 21:45 Reassessment: Patient appears in no apparent distress at this time. Patient and/or kj2 family updated on plan of care and expected duration. Pain level reassessed. Patient is alert, oriented x 3, equal unlabored respirations, skin warm/dry/pink. 22:47 Reassessment: Patient appears in no apparent distress at this time. Patient and/or kj2 family updated on plan of care and expected duration. Pain level reassessed. Patient is alert, oriented x 3, equal unlabored respirations, skin warm/dry/pink. Vital Signs: 16:52 BP 133 / 87; Pulse 68; Resp 16; Temp 99.3; Pulse Ox 99% on R/A; Weight 83.91 kg; Height hb 5 ft. 10 in. ; Pain 8/10; 19:47 BP 126 / 63; Pulse 71; Resp 18; Temp 96.7; Pulse Ox 99% ; hw 20:46 BP 124 / 63; Pulse 70; Resp 18; Pulse Ox 100% on R/A; kj2 22:47 BP 122 / 68; Pulse 72; Resp 20; Temp 98; Pulse Ox 100% on R/A; kj2 16:52 Body Mass Index 26.54 (83.91 kg, 177.8 cm) hb 16:52 Pain Scale: Adult hb ED Course: 16:26 Patient arrived in ED. cj3 16:34 Kentrell Harden FNP-C [facility]. dr5 16:34 Shorty Castrejon MD is Attending Physician. dr5 16:54 Triage completed. hb 16:54 Arm band placed on. hb 17:11 Chest Pa And Lat (2 Views) XRAY In Process Unspecified. EDMS 17:11 Shoulder Right (2 View) XRAY In Process Unspecified. EDMS 19:47 Inserted saline lock: 20 gauge in left antecubital area, using aseptic technique. Blood hw collected. Flushed with 10 mL NS. 19:48 Basic Metabolic Panel Sent. hw 19:48 CBC with Diff Sent. hw 19:48 Troponin HS Sent. hw 20:44 Lashonda Yu, RN is Primary Nurse. kj2 20:45 Patient has correct armband on for positive identification. Bed in low position. Call kj2 light in reach. Provided Education on: call light. 22:48 No provider procedures requiring assistance completed. IV discontinued, intact, kj2 bleeding controlled, No redness/swelling at site. Pressure dressing applied. Administered Medications: 20:03 Drug: Ondansetron IVP 4 mg IVP once; over 2 minutes Route: IVP; Site: left antecubital; lg3 22:50 Follow up: Response: No adverse reaction kj2 20:03 Drug: Ketorolac IVP 15 mg IVP once Route: IVP; Site: left antecubital; lg3 22:50 Follow up: Response: No adverse reaction kj2 20:04 Drug: Dexamethasone IVP 10 mg IVP once; (not to exceed 40 mg) Route: IVP; Site: left lg3 antecubital; 22:50 Follow up: Response: No adverse reaction kj2 20:04 Drug: morphine IVP or IV 4 mg IVP once over 4 mins Route: IVP; Infused Over: 4 mins; lg3 Site: left antecubital; 22:50 Follow up: Response: No adverse reaction kj2 Medication: 22:48 VIS not applicable for this client. kj2 Outcome: 22:28 Discharge ordered by . dr5 22:49 Discharged to home kj2 22:49 Condition: stable 22:49 Discharge instructions given to patient, Instructed on Demonstrated understanding of instructions, follow-up care, 22:50 Patient left the ED. kj2 Signatures: Dispatcher [employer] EDMS Candy Jimenez RN RN Codi Gilbert RN RN lg3 Lashonda Yu RN RN kj2 Anila Kwong Kentrell Harden, PHARMACY HELPER-C PHARMACY HELPER-[facility]5 Yolanda Ramirez 3
[2024-10-06 22:58] VITALS: O2SAT 100
[2024-10-06 23:00] VITALS: BP 122/68; TEMP 98
--- NOTE | 2024-10-09 10:55 | EKG ---
Test Date: 2024-10-06 Test Time: 19:29:22 Internal Sales Engineer: GAIL MEASUREMENT RESULTS: Intervals: Rate: 79 RI: 164 QRSD: 100 QT: 370 QTc: 424 [place]: P: 67 RI: 164 QRS: 67 T: 59 INTERPRETIVE STATEMENTS: Normal sinus rhythm Normal ECG Compared to ECG 01/17/2024 12:47:00 Sinus bradycardia no longer present Electronically Signed On 10-09-24 10:50:02 CDT by Jose Nelson
== END 2024-10-06 22:50 | disposition home or self-care (01) ==
LOC: ER 16:21
DX: S46.811A Strain of other muscles, fascia and tendons at shoulder and upper arm level, right arm, initial encounter (principal)
CPT/HCPCS: 85025; 80048; 36415; 84484; 71046; 73030; 96375; 96374; 99284; J1100; J2405; 93005

== ENCOUNTER 2024-10-17 06:15 | Day surgery (SDC) | payer OTHER ==
[2024-10-16 09:46] LABS: Sqamous Epithelial None Seen /HPF (None Seen); Urine Bacteria None Seen /HPF (<20); Urine Mucus Slight /HPF (None Seen); Urine RBC <5 /HPF (None Seen); Urine Sperm Present (None Seen); Urine WBC <5 /HPF (<5)
[2024-10-16 10:24] LABS: Specific Gravity > 1.030 (1.005-1.030); Urine Bilirubin NEGATIVE (Negative); Urine Blood Negative (Negative); Urine Clarity Clear (Clear); Urine Color Light-Yellow (Yellow); Urine Culture Reflex Order REFLEXED; Urine Glucose 4+ (Over) (Negative); Urine Ketones NEGATIVE (Negative); Urine Microscopic Reflex YN NO UMIC; Urine Nitrite NEGATIVE (Negative); Urine Protein NEGATIVE (Negative); Urine Urobilinogen Normal (Normal); Urine pH 5.5 (5.0-7.0)
[2024-10-17] MEDS: DIAZEPAM 5 MG TABLET ONE (06:25)
[2024-10-17] MEDS: OXYBUTYNIN ER 5 MG TAB PO ONE (06:25)
[2024-10-17 06:56] VITALS: BP 120/67; TEMP 97.3; O2SAT 100
[2024-10-17] MEDS: LIDOCAINE JELLY 2% 5 ML SYRINGE TOP ONE (07:00)
[2024-10-17 07:22] VITALS: BMI 25.8
[2024-10-17] MEDS ORDERED: Gemcitabine 52.6 ML IS ONE (08:00)
--- NOTE | 2024-10-17 18:05 | P.PN ---
Date of Service: 10/17/24 Preprocedure diagnoses: Recurrent low-grade urothelial carcinoma the bladder Postprocedure diagnosis: Recurrent low-grade urothelial carcinoma the bladder Principal procedures: Insertion of urethral Reynolds catheter Instillation of intravesical gemcitabine 2 g in 50 cc normal saline, monthly maintenance since 04/04/24 Indication for procedure: Mr. Montes is a 59-year-old gentleman who underwent removal of a significantly sized bladder tumor found to be TA low-grade pathologically September 2022. He underwent an induction course of gemcitabine and then followed up with maintenance at which point a recurrence was noted December 2023. He was counseled on the potential benefit of not only a repeat induction course but continued maintenance therapy for a year to try to decrease his risk of future recurrences. Procedure note: The patient was consented before and his genitalia was prepped with Betadine and a lidocaine Uro-Jet was used to insert an 18 [place] Reynolds catheter with ease. The bladder was decompressed of fluid and urine, and then his genitalia was toweled off and a fluid impermeable drape was placed covering his body from head to toe with the phallus brought through a hiatus in the drape to minimize the risk of contact exposure. He had been given 5 mg of Valium and 10 mg of oxybutynin XL prior to the subsequent retrograde instillation of 2 g of gemcitabine and 50 cc normal saline via the catheter into his bladder. He was then allowed to rotate by one quarter turn every 15 minutes, targeting a total of 90 minutes of instillation. The urine and chemotherapy was subsequently evacuated into the associated leg bag, and the urethral Reynolds catheter was removed. He was then allowed to sit, stand, and wash up and get dressed before being discharged from the day surgery procedure area in good condition. Complications: None Discharge disposition: Follow-up for outpatient/office cystoscopy in ~3 months, or as scheduled from his last outpatient cysto visit. Continue intravesical gemcitabine 2 g monthly maintenance therapy once a month thereafter for 1 year, until 02/2025.
== END 2024-10-17 09:35 | disposition home or self-care (01) ==
LOC: DS 06:15
PROVIDERS: ATTEND Urology
DX: C67.9 Malignant neoplasm of bladder, unspecified (principal)
CPT/HCPCS: 87088; 87086; 81003; 51720; J9201

== ENCOUNTER → 2024-11-07 | Day surgery (SDC) | payer OTHER ==
[2024-11-06 12:48] LABS: Specific Gravity 1.027 (1.005-1.030); Sqamous Epithelial <5 /HPF (None Seen); Urine Bacteria None Seen /HPF (<20); Urine Bilirubin NEGATIVE (Negative); Urine Blood 1+ (Negative); Urine Clarity Clear (Clear); Urine Color Light-Yellow (Yellow); Urine Culture Reflex Order REFLEXED; Urine Glucose 1+ (Negative); Urine Ketones NEGATIVE (Negative); Urine Microscopic Reflex YN ORDER UMIC; Urine Mucus 1+ /HPF (None Seen); Urine Nitrite NEGATIVE (Negative); Urine Protein NEGATIVE (Negative); Urine RBC <5 /HPF (None Seen); Urine Urobilinogen Normal (Normal); Urine WBC <5 /HPF (<5)
[~2024-11-07] MED LIST changes: +LIDOCAINE JELLY 2% 5 ML SYRINGE TOP ONE
[2024-11-07] MEDS: OXYBUTYNIN ER 5 MG TAB PO ONE (06:20)
[2024-11-07] MEDS: DIAZEPAM 5 MG TABLET ONE (06:20)
[2024-11-07 07:19] VITALS: BP 124/60; TEMP 98.1; O2SAT 100; BMI 25.8
--- NOTE | 2024-11-07 14:08 | P.PN ---
Date of Service: 11/07/24 Preprocedure diagnoses: Recurrent low-grade urothelial carcinoma the bladder Postprocedure diagnosis: Recurrent low-grade urothelial carcinoma the bladder Principal procedures: Insertion of urethral Reynolds catheter Instillation of intravesical gemcitabine 2 g in 50 cc normal saline, monthly maintenance since 04/04/24 Indication for procedure: Mr. Montes is a 59-year-old gentleman who underwent removal of a significantly sized bladder tumor found to be TA low-grade pathologically September 2022. He underwent an induction course of gemcitabine and then followed up with maintenance at which point a recurrence was noted December 2023. He was counseled on the potential benefit of not only a repeat induction course but continued maintenance therapy. Initially, the counseling involved 1 year of maintenance to try to decrease his risk of future recurrences, but I informed him today that current literature would suggest further consolidation and decrease risk of recurrence with 2 years of maintenance therapy. He did not seem very pleased to hear that recommendation. Procedure note: The patient was consented before and his genitalia was prepped with Betadine and a lidocaine Uro-Jet was used to insert an 18 [place] Reynolds catheter with ease. The bladder was decompressed of fluid and urine, and then his genitalia was toweled off and a fluid impermeable drape was placed covering his body from head to toe with the phallus brought through a hiatus in the drape to minimize the risk of contact exposure. He had been given 5 mg of Valium and 10 mg of oxybutynin XL prior to the subsequent retrograde instillation of 2 g of gemcitabine and 50 cc normal saline via the catheter into his bladder. He was then allowed to rotate by one quarter turn every 15 minutes, targeting a total of 90 minutes of instillation. The urine and chemotherapy was subsequently evacuated into the associated leg bag, and the urethral Reynolds catheter was removed. He was then allowed to sit, stand, and wash up and get dressed before being discharged from the day surgery procedure area in good condition. Complications: None Discharge disposition: Follow-up for outpatient/office cystoscopy 3 months from his last outpatient cystoscopy visit, or as scheduled. Continue intravesical gemcitabine 2 g monthly maintenance therapy once a month thereafter for 1-2 years, between 02/2025 and 02/2026 at patient's discretion.
== END ==
LOC: DS 06:05
PROVIDERS: ATTEND Urology
PROC: 3E0K705 Introduction of Other Antineoplastic into Genitourinary Tract, Via Natural or Artificial Opening (ICD-10-PCS; principal; 2024-11-07)
DX: C67.9 Malignant neoplasm of bladder, unspecified (principal)
CPT/HCPCS: 87088; 81001; 87086; 82947; 51720; J9201

== ENCOUNTER 2025-02-13 06:03 | Day surgery (SDC) | payer OTHER ==
[2025-02-13 06:20] LABS: Urine Culture Reflex Order REFLEXED; Urine Microscopic Reflex YN NO UMIC
[2025-02-13] MEDS: OXYBUTYNIN ER 5 MG TAB PO ONE (06:20)
[2025-02-13 06:36] VITALS: BP 118/55; TEMP 97.6; O2SAT 100; BMI 25.1
[2025-02-13] MEDS: DIAZEPAM 5 MG TABLET ONE (06:40)
[2025-02-13] MEDS: LIDOCAINE JELLY 2% 5 ML SYRINGE TOP ONE (06:55)
[2025-02-13] MEDS ORDERED: Gemcitabine 52.6 ML IS ONE (07:30)
--- NOTE | 2025-02-13 17:57 | P.PN ---
Date of Service: 02/13/25 Preprocedure diagnoses: Recurrent low-grade urothelial carcinoma the bladder Postprocedure diagnosis: Recurrent low-grade urothelial carcinoma the bladder Principal procedures: Insertion of urethral Reynolds catheter Instillation of intravesical gemcitabine 2 g in 50 cc normal saline, monthly maintenance since 04/04/24 Indication for procedure: Mr. Montes is a 59-year-old gentleman who underwent removal of a significantly sized bladder tumor found to be TA low-grade pathologically September 2022. He underwent an induction course of gemcitabine and then followed up with maintenance at which point a recurrence was noted December 2023. He was counseled on the potential benefit of not only a repeat induction course but continued maintenance therapy. Initially, the counseling involved 1 year of maintenance to try to decrease his risk of future recurrences, but I informed him today that current literature would suggest further consolidation and decrease risk of recurrence with 2 years of maintenance therapy. He did not seem very pleased to hear that recommendation. Procedure note: The patient was consented before and his genitalia was prepped with Betadine and a lidocaine Uro-Jet was used to insert an 18 [place] Reynolds catheter with ease. The bladder was decompressed of fluid and urine, and then his genitalia was toweled off and a fluid impermeable drape was placed covering his body from head to toe with the phallus brought through a hiatus in the drape to minimize the risk of contact exposure. He had been given 5 mg of Valium and 10 mg of oxybutynin XL prior to the subsequent retrograde instillation of 2 g of gemcitabine and 50 cc normal saline via the catheter into his bladder. He was then allowed to rotate by one quarter turn every 15 minutes, targeting a total of 90 minutes of instillation. The urine and chemotherapy was subsequently evacuated into the associated leg bag, and the urethral Reynolds catheter was removed. He was then allowed to sit, stand, and wash up and get dressed before being discharged from the day surgery procedure area in good condition. Complications: None Discharge disposition: Follow-up for outpatient/office cystoscopy as scheduled. Continue intravesical gemcitabine 2 g monthly maintenance therapy once a month thereafter targeting 2 years, 02/2026, at patient's discretion.
== END 2025-02-13 09:15 | disposition home or self-care (01) ==
LOC: DS 06:03
PROVIDERS: ATTEND Urology
PROC: 3E0K705 Introduction of Other Antineoplastic into Genitourinary Tract, Via Natural or Artificial Opening (ICD-10-PCS; principal; 2025-02-13)
DX: C67.9 Malignant neoplasm of bladder, unspecified (principal)
CPT/HCPCS: 87088; 87086; 81003; 51720; J9201

== ENCOUNTER 2025-04-10 06:10 | Day surgery (SDC) | payer OTHER ==
[2025-04-09 13:51] LABS: Sqamous Epithelial None Seen /HPF (None Seen); Urine Microscopic Reflex YN ORDER UMIC
[2025-04-09 14:01] LABS: Urine Culture Reflex Order NOT NEEDED
[2025-04-10] MEDS: OXYBUTYNIN ER 5 MG TAB PO ONE (06:35)
[2025-04-10] MEDS: DIAZEPAM 5 MG TABLET ONE (06:35)
[2025-04-10] MEDS ORDERED: LIDOCAINE JELLY 2% 5 ML SYRINGE TOP ONE (06:40)
[2025-04-10] MEDS ORDERED: Gemcitabine 52.6 ML IS ONE (08:00)
[2025-04-10 08:26] VITALS: BP 116/67; TEMP 97.3; O2SAT 100; BMI 25.8
--- NOTE | 2025-04-10 14:46 | P.PN ---
Date of Service: 04/10/25 Preprocedure diagnoses: Recurrent low-grade urothelial carcinoma the bladder Postprocedure diagnosis: Recurrent low-grade urothelial carcinoma the bladder Principal procedures: Insertion of urethral Reynolds catheter Instillation of intravesical gemcitabine 2 g in 50 cc normal saline, monthly maintenance since 04/04/24 Indication for procedure: Mr. Montes is a 59-year-old gentleman who underwent removal of a significantly sized bladder tumor found to be TA low-grade pathologically September 2022. He underwent an induction course of gemcitabine and then followed up with maintenance at which point a recurrence was noted December 2023. He was counseled on the potential benefit of not only a repeat induction course but continued maintenance therapy. Initially, the counseling involved 1 year of maintenance to try to decrease his risk of future recurrences, but I informed him today that current literature would suggest further consolidation and decrease risk of recurrence with 2 years of maintenance therapy. He did not seem very pleased to hear that recommendation. Procedure note: The patient was consented before and his genitalia was prepped with Betadine and a lidocaine Uro-Jet was used to insert an 18 [place] Reynolds catheter with ease. The bladder was decompressed of fluid and urine, and then his genitalia was toweled off and a fluid impermeable drape was placed covering his body from head to toe with the phallus brought through a hiatus in the drape to minimize the risk of contact exposure. He had been given 5 mg of Valium and 10 mg of oxybutynin XL prior to the subsequent retrograde instillation of 2 g of gemcitabine and 50 cc normal saline via the catheter into his bladder. He was then allowed to rotate by one quarter turn every 15 minutes, targeting a total of 90 minutes of instillation. The urine and chemotherapy was subsequently evacuated into the associated leg bag, and the urethral Reynolds catheter was removed. He was then allowed to sit, stand, and wash up and get dressed before being discharged from the day surgery procedure area in good condition. Complications: None Discharge disposition: Follow-up for outpatient/office cystoscopy as scheduled. Continue intravesical gemcitabine 2 g monthly maintenance therapy once a month thereafter targeting 2 years, 02/2026, at patient's discretion.
== END 2025-04-10 09:15 | disposition home or self-care (01) ==
LOC: DS 06:10
PROVIDERS: ATTEND Urology
PROC: 3E0K705 Introduction of Other Antineoplastic into Genitourinary Tract, Via Natural or Artificial Opening (ICD-10-PCS; principal; 2025-04-10)
DX: C67.9 Malignant neoplasm of bladder, unspecified (principal); Z51.11 Encounter for antineoplastic chemotherapy
CPT/HCPCS: 51720; 81001; 87086; 87088; J9201